=== PATIENT | female | born 1990 | race Two or more races ===

== ENCOUNTER 2018-07-09 20:13 | Emergency (ER) | payer OTHER ==
[~2018-07-09] VITALS: Ht 165.1 cm; Wt 87.1 kg
[2018-07-09] MEDS ORDERED: IBUP-1955 PO (20:34)
[2018-07-09] MEDS ORDERED: KETOROLAC TROMETHAMINE 30 MG INJ IM ONE (21:00)
[2018-07-09 21:02] LABS: *URINE HCG, QUAL NEGATIVE (NEGATIVE)
[2018-07-09] MEDS ORDERED: KETOROLAC TROMETHAMINE 30 MG INJ ONE (21:17)
--- NOTE | 2018-07-09 22:31 | NUR ---
Patient discharged to home in stable conditon. Written and verbal after care instructions given. Patient verbalizes understanding of instructions. WALKED OUT OF ER WITH NO DISTRESS NOTED
[2018-07-09 22:33] VITALS: BP 128/88
== END 2018-07-09 22:34 | disposition home or self-care (01) ==
LOC: ER 20:16
DX: M54.6 Pain in thoracic spine (principal); Z79.1 Long term (current) use of non-steroidal anti-inflammatories (NSAID)
CPT/HCPCS: 72128; 84703; 96372; 99284; J1885; A4663